=== PATIENT | male | born 1945 | race African-American/Black ===

== ENCOUNTER 2018-06-27 17:49 | Emergency (ER) | payer OTHER ==
--- OUTSIDE RECORDS SUMMARY | 2018-06-27 17:51 | XMS REPORT | Clinical Summary ---
:1945 Author Organization [facility] Address [address] [place] [address] Care Team Providers Name Role Phone Asked, No Pcp Primary Care Provider Unavailable Allergies Active Allergy Reactions Severity Noted Date Comments Iodine 02/27/2016 Lisinopril Swelling 10/06/2017 Tongue Other 05/12/2018 PT STATES HE IS ALLERGIC TO ONE BP MED CAUSING HIS TONGUE TO SWELL BUT DOES NOT REMEMBER THE NAME. PT WILL PROVIDE THE MED NAME IN AM. Medications Medication Sig Dispensed Refills Start Date End Date Status amLODIPine Take 10 mg by 0 Active (NORVASC) 10 MG mouth daily. tablet hydrALAZINE Take 50 mg by 0 Active (APRESOLINE) 25 MG mouth 3 tablet (three) times a day. predniSONE Take 5 mg by 0 Active (DELTASONE) 5 MG mouth daily. tablet aspirin (ECOTRIN) Take 81 mg by 0 Active 81 MG enteric mouth daily. coated tablet isosorbide Take 60 mg by 0 Active mononitrate (IMDUR) mouth daily. 60 MG 24 hr tablet atorvastatin Take 40 mg by 0 Active (LIPITOR) 40 MG mouth daily. tablet metoprolol tartrate Take 50 mg by 0 Active (LOPRESSOR) 50 MG mouth 2 (two) tablet times a day. clonIDINE Take 0.1 mg by 0 Active (CATAPRES) 0.1 MG mouth 2 (two) tablet times a day. furosemide (LASIX) Take 40 mg by 0 Active 40 mg tablet mouth daily. sevelamer carbonate Take 2.4 g by 0 Active (RENVELA) 2.4 gram mouth 3 powder in packet (three) times a day with meals. clopidogrel Take 75 mg by 0 Active (PLAVIX) 75 mg mouth daily. tablet traMADol (ULTRAM) Take 1 tablet 20 tablet 0 10/28/2017 11/02/2017 50 mg tablet (50 mg total) by mouth every 6 (six) hours as needed for severe pain for up to 5 days. lisinopril Take 10 mg by 0 05/13/2018 Discontinued (PRINIVIL,ZESTRIL) mouth daily. 10 mg tablet HYDROcodone-acetami Take 1 tablet 30 tablet 0 05/13/2018 05/20/2018 nophen (NORCO) by mouth every 5-325 mg per tablet 6 (six) hours as needed for moderate pain for up to 30 doses. Max Daily Amount: 4 tablets Active Problems Problem Noted Date Renal failure 01/30/2016 Dialysis patient Overview: MON,WED, FRI Wears glasses Full dentures TIA (transient ischemic attack) Overview: X5 Encounters Date Type Specialty Care Team Description 05/13/2018 Anesthesia Event General Surgery Regine Watters FNP 05/13/2018 Surgery General Surgery Tamera, RIGHT UPPER David Sales MD EXTREMITY AV GRAFT EXCISION 05/13/2018 Hospital Encounter General Surgery Tamera, End stage renal David Sales MD disease 05/13/2018 Abstract Transplant Gerber Bearden RN 05/12/2018 Hospital Encounter Radiology Praveen, Preoperative testing MD Bruce 05/12/2018 Pre-Admit Testing Pre-Admission Tamera Preoperative testing Appointment Testing David Sales MD (Primary Dx) 11/20/2017 Emergency Emergency Medicine Darling, Gangrene of toe Gerber Sales MD (Primary Dx) 10/28/2017 Emergency Emergency Medicine Tyrell Wolf PVD (peripheral vascular disease) (Primary Dx); Ulcer of great toe, left, with necrosis of muscle after 06/26/2017 Family History Medical History Relation Name Comments No Known Problems Brother No Known Problems Cousin No Known Problems Daughter No Known Problems Father No Known Problems Maternal Grandfather No Known Problems Maternal Grandmother No Known Problems Mother No Known Problems Paternal Grandfather No Known Problems Paternal Grandmother No Known Problems Sister No Known Problems Son Asthma Neg Hx Diabetes Neg Hx Heart failure Neg Hx Hyperlipidemia Neg Hx Hypertension Neg Hx Migraines Neg Hx Osteoarthritis Neg Hx Rashes / Skin problems Neg Hx Rheum arthritis Neg Hx Seizures Neg Hx Stroke Neg Hx Thyroid disease Neg Hx Relation Name Status Comments Brother Cousin Daughter Father Maternal Grandfather Maternal Grandmother Mother Paternal Grandfather Paternal Grandmother Sister Son Social History Tobacco Use Types Packs/Day Years Used Date Former Smoker Cigarettes Smokeless Tobacco: Never Used Comments: QUITTED ABOUT 30 years ago Alcohol Use Drinks/Week oz/Week Comments Yes Sex Assigned at Date Recorded Not on file Job Start Date Occupation Industry Not on file Not on file Not on file Travel History Travel Start Travel End No recent travel history available. Last Filed Vital Signs Vital Sign Reading Time Taken Blood Pressure 100/50 05/13/2018 1:30 PM CDT Pulse 73 05/13/2018 1:30 PM CDT Temperature 36.3 C (97.3 F) 05/13/2018 1:00 PM CDT Respiratory Rate 12 05/13/2018 1:30 PM CDT Oxygen Saturation 97% 05/13/2018 1:30 PM CDT Inhaled Oxygen Concentration - - Weight 70.3 kg (155 lb) 05/13/2018 6:53 AM CDT Height 182.9 cm (6') 05/13/2018 6:53 AM CDT Body Mass Index 21.02 05/13/2018 6:53 AM CDT Plan of Treatment Health Maintenance Due Date Last Done Comments COLON CANCER SCREENING 1993 SHINGRIX VACCINE (#1) 1993 ZOSTER VACCINE 2003 PNEUMOCOCCAL POLYSACCHARIDE VACCINE AGE 65 2008 AND OVER INFLUENZA VACCINE 03/17/2018 04/17/2017, 06/17/2016 PNEUMOCOCCAL-13 Completed 08/17/2015 Procedures Procedure Name Priority Date/Time Associated Comments Diagnosis AFB CULTURE Timed 05/13/2018 11:00 AM End stage renal Results for this CDT disease (HCC) procedure are in the results section. AFB STAIN Timed 05/13/2018 10:00 AM Results for this CDT procedure are in the results section. FUNGUS SMEAR Timed 05/13/2018 10:00 AM Results for this CDT procedure are in the results section. GRAM STAIN Timed 05/13/2018 10:00 AM Results for this CDT procedure are in the results section. AEROBIC CULTURE Timed 05/13/2018 10:00 AM End stage renal Results for this CDT disease procedure are in the results section. FUNGUS CULTURE Timed 05/13/2018 10:00 AM End stage renal Results for this CDT disease (HCC) procedure are in the results section. ANAEROBIC CULTURE Timed 05/13/2018 10:00 AM End stage renal Results for this CDT disease (HCC) procedure are in the results section. ANESTHESIA Routine 05/13/2018 9:23 AM INTUBATION CDT Procedure Note - Samantha Weaver CRNA - 05/13/2018 9:23 AM CDT Airway Date/Time: 05/13/2018 9:23 AM Performed by: SAMANTHA WEAVER Authorized by: PAOLO KAHN Location: OR Difficult Airway: No Anesthesiologist: PAOLO KAHN Resident/[employer] HAND/AA: SAMANTHA WEAVER Performed by: resident/[employer] HAND/AA Preoxygenated with 100% O2: Yes C-spine Precautions Maintained Throughout: Yes Mask Ventilation: Not attempted Final Airway Type: Supraglottic airway Final LMA: I-Gel LMA Size: 5 Number of Attempts at Approach: 1 POC PANEL 4 Routine 05/13/2018 7:54 Results for this AM CDT procedure are in the results section. ESTIMATED GFR STAT 05/13/2018 7:52 Results for this AM CDT procedure are in the results section. BASIC METABOLIC PANEL STAT 05/13/2018 7:52 Results for this AM CDT procedure are in the results section. XR CHEST 2 VW Routine 05/12/2018 4:09 Preoperative testing Results for this PM CDT procedure are in the results section. TYPE AND SCREEN Routine 05/12/2018 3:00 Preoperative testing Results for this PM CDT procedure are in the results section. PARTIAL THROMBOPLASTIN Routine 05/12/2018 3:00 Preoperative testing Results for this TIME (PTT) PM CDT procedure are in the results section. PROTHROMBIN TIME WITH Routine 05/12/2018 3:00 Preoperative testing Results for this INR PM CDT procedure are in the results section. HC COMPLETE BLD COUNT Routine 05/12/2018 3:00 Preoperative testing Results for this W/AUTO DIFF PM CDT procedure are in the results section. ECG PRE/POST OP Routine 05/12/2018 2:01 Preoperative testing Results for this PM CDT procedure are in the results section. XR TOE 2+ VW LEFT STAT 11/20/2017 8:10 Results for this PM CDT procedure are in the results section. BLOOD CULTURE, AEROBIC Routine 11/20/2017 8:00 Results for this & ANAEROBIC PM CDT procedure are in the results section. ZZESTIMATED GFR STAT 11/20/2017 7:48 Results for this PM CDT procedure are in the results section. BASIC METABOLIC PANEL STAT 11/20/2017 7:48 Results for this PM CDT procedure are in the results section. HC COMPLETE BLD COUNT STAT 11/20/2017 7:48 Results for this W/AUTO DIFF PM CDT procedure are in the results section. BLOOD CULTURE, AEROBIC Routine 11/20/2017 7:48 Results for this & ANAEROBIC PM CDT procedure are in the results section. XR FOOT 3+ VW LEFT STAT 10/28/2017 1:28 Results for this PM CDT procedure are in the results section. ZZESTIMATED GFR STAT 10/28/2017 12:45 Results for this PM CDT procedure are in the results section. URIC ACID LEVEL STAT 10/28/2017 12:45 Results for this PM CDT procedure are in the results section. COMPREHENSIVE STAT 10/28/2017 12:45 Results for this METABOLIC PANEL PM CDT procedure are in the results section. PARTIAL THROMBOPLASTIN STAT 10/28/2017 12:45 Results for this TIME (PTT) PM CDT procedure are in the results section. PROTHROMBIN TIME WITH STAT 10/28/2017 12:45 Results for this INR PM CDT procedure are in the results section. HC COMPLETE BLD COUNT STAT 10/28/2017 12:45 Results for this W/AUTO DIFF PM CDT procedure are in the results section. after 06/26/2017 Results AFB culture (05/13/2018 11:00 AM CDT) AFB culture isolate No growth after 6 weeks of incubation. [facility] DEPARTMENT OF PATHOLOGY Comment: AND [employer] MEDICINE Specimen Information Specimen Source: Tissue Specimen Site: Arm, right AV graft right upper extremity Specimen Tissue - Arm, right Performing Organization Address City/[facility] Phone Number [facility] DEPARTMENT OF PATHOLOGY AND [address] [place] [phone] GENOMIC MEDICINE Fungus smear (05/13/2018 10:00 AM CDT) Fungus smear No fungi observed. [facility] DEPARTMENT OF PATHOLOGY Comment: AND [employer] MEDICINE Specimen Information Specimen Source: Tissue Specimen Site: Arm, right AV graft right upper extremity Specimen Tissue Performing Organization Address City/[facility] Phone Number [facility] DEPARTMENT OF PATHOLOGY AND [address] [place] [address] [employer] MEDICINE Aerobic culture (05/13/2018 10:00 AM CDT) Aerobic culture isolate No growth after 3 days. [facility] DEPARTMENT OF Comment: PATHOLOGY AND GENOMIC Specimen Information MEDICINE Specimen Source: Tissue Specimen Site: Arm, right AV graft right upper extremity Specimen Tissue - Arm, right Performing Organization Address City/[facility] Phone Number [facility] DEPARTMENT OF PATHOLOGY AND [address] [place] [address] GENOMIC MEDICINE Gram stain (05/13/2018 10:00 AM CDT) Gram stain isolate Occasional WBC's [facility] DEPARTMENT OF PATHOLOGY No organisms seen AND GENOMIC MEDICINE Comment: Specimen Information Specimen Source: Tissue Specimen Site: Arm, right AV graft right upper extremity Specimen Tissue Performing Organization Address [facility] Phone Number [facility] DEPARTMENT OF PATHOLOGY AND [address] [place] [address] GENOMIC MEDICINE AFB stain (05/13/2018 10:00 AM CDT) AFB stain No acid fast bacilli (AFB) seen. [facility] DEPARTMENT OF PATHOLOGY AND Comment: GENOMIC MEDICINE Specimen Information Specimen Source: Tissue Specimen Site: Arm, right AV graft right upper extremity Specimen Tissue Performing Organization Address [facility] Phone Number [facility] DEPARTMENT OF PATHOLOGY AND [address] [place] [address] GENOMIC MEDICINE Fungus culture (05/13/2018 10:00 AM CDT) Fungus culture isolate No growth after 4 weeks of incubation. [facility] DEPARTMENT OF Comment: PATHOLOGY AND GENOMIC Specimen Information MEDICINE Specimen Source: Tissue Specimen Site: Arm, right AV graft right upper extremity Specimen Tissue - Arm, right Performing Organization Address [facility] Phone Number [facility] DEPARTMENT OF PATHOLOGY AND [address] [place] [address] GENOMIC MEDICINE Anaerobic culture (05/13/2018 10:00 AM CDT) Anaerobic culture No anaerobic organisms isolated. [facility] DEPARTMENT OF isolate Comment: PATHOLOGY AND GENOMIC Specimen Information MEDICINE Specimen Source: Tissue Specimen Site: Arm, right AV graft right upper extremity Specimen Tissue - Arm, right Performing Organization Address City/[facility] Phone Number [facility] DEPARTMENT OF PATHOLOGY AND [address] [place] [address] GENOMIC MEDICINE POC panel 4 (05/13/2018 7:54 AM CDT) POC sodium 139 135 - 148 mmol/L [facility] DEPARTMENT OF PATHOLOGY AND GENOMIC MEDICINE POC potassium 5.5 (H) 3.5 - 5.0 mmol/L [facility] DEPARTMENT OF PATHOLOGY AND GENOMIC MEDICINE POC hematocrit 31 (L) 41 - 51 % [facility] DEPARTMENT OF PATHOLOGY AND GENOMIC MEDICINE POC glucose 79 65 - 99 mg/dL [facility] DEPARTMENT OF PATHOLOGY AND GENOMIC MEDICINE POC hemoglobin 10.5 (L) 14.0 - 18.0 g/dL [facility] DEPARTMENT OF Comment: PATHOLOGY AND GENOMIC Meter ID: [id number] MEDICINE Network Associate: Eugene Sonia Specimen Blood Performing Organization Address City/[facility]/Zipcode Phone Number [facility] DEPARTMENT OF PATHOLOGY [address] [place] [address] AND [employer] [facility] Estimated GFR (05/13/2018 7:52 AM CDT) Estimated GFR 8 (A) mL/min/1.73 m2 [facility] DEPARTMENT OF Comment: PATHOLOGY AND GENOMIC CatergoryUnitsInterpretation MEDICINE G1 >=90 Normal or high G2 60-89Mildly decreased [id number] to moderately decreased [id number] to severely decreased G4 15-29Severely decreased G5 <15Kidney failure The eGFR was calculated using the Chronic Kidney Disease Epidemiology Collaboration (CKD-EPI) equation. Interpretation is based on recommendations of the National Kidney Foundation-Kidney Disease Outcomes Quality Initiative (NKF-KDOQI) published in 2014. Specimen Plasma specimen Performing Organization Address City/[facility] Phone Number [facility] OF PATHOLOGY [address] [place] [address] AND [facility] Basic metabolic panel (05/13/2018 7:52 AM CDT)Only the most recent of2 resultswithin the time period is included. Sodium 138 135 - 148 mEq/L [facility] DEPARTMENT OF PATHOLOGY AND GENOMIC MEDICINE Potassium 5.7 (H) 3.5 - 5.0 mEq/L [facility] DEPARTMENT OF PATHOLOGY AND GENOMIC MEDICINE Chloride 97 (L) 98 - 112 mEq/L [facility] DEPARTMENT OF PATHOLOGY AND GENOMIC MEDICINE CO2 26 24 - 31 mEq/L [facility] DEPARTMENT OF PATHOLOGY AND GENOMIC MEDICINE Anion gap 15@ANIO 7 - 15 mEq/L [facility] DEPARTMENT OF PATHOLOGY AND GENOMIC MEDICINE BUN 46 (H) 8 - 23 mg/dL [facility] DEPARTMENT OF PATHOLOGY AND GENOMIC MEDICINE Creatinine 7.31 (H) 0.70 - 1.20 mg/dL [facility] DEPARTMENT OF PATHOLOGY AND GENOMIC MEDICINE Glucose 78 65 - 99 mg/dL [facility] DEPARTMENT OF PATHOLOGY AND GENOMIC MEDICINE Calcium 8.4 (L) 8.8 - 10.2 mg/dL [facility] DEPARTMENT OF PATHOLOGY AND GENOMIC MEDICINE Specimen Plasma specimen Performing Organization Address City/State/Zipcode Phone Number [facility] DEPARTMENT OF PATHOLOGY [address] [place] [address] AND [employer] MEDICINE XR Chest 2 Vw (05/12/2018 4:09 PM CDT) Narrative Performed At EXAMINATION:XR CHEST 2 VW [facility] CLINICAL HISTORY:Z01.818 Encounter for other preprocedural examination, PREOP COMPARISON:Chest x-ray 01/31/2016 IMPRESSION: Frontal and lateral views reveal interval placement of a HeRO graft. Otherwise stable cardiomediastinal silhouette. Lungs are clear. Pleural margins are sharp. Left hemidiaphragm remains elevated. The remainder of the examination is unchanged. [facility]-[id number] Procedure Note Interface, Radiology Results Incoming - 05/12/2018 4:15 PM CDT EXAMINATION: XR CHEST 2 VW CLINICAL HISTORY: Z01.818 Encounter for other preprocedural examination, PREOP COMPARISON: Chest x-ray 01/31/2016 IMPRESSION: Frontal and lateral views reveal interval placement of a HeRO graft. Otherwise stable cardiomediastinal silhouette. Lungs are clear. Pleural margins are sharp. Left hemidiaphragm remains elevated. The remainder of the examination is unchanged. [facility]-[id number] Performing Organization Address [facility] Phone Number [facility] [address] [place] [address] Partial thromboplastin time, activated (05/12/2018 3:00 PM CDT)Only the most recent of2 resultswithin the time period is included. PTT 36.0 23.0 - 36.0 sec [facility] DEPARTMENT OF Comment: PATHOLOGY AND GENOMIC PTT therapeutic range for unfractionated heparin is MEDICINE 61.0-112.0 seconds which corresponds to Anti-Xa 0.3-0.7 U/ml. Specimen Blood Performing Organization Address City/State/Zipcode Phone Number [facility] DEPARTMENT OF PATHOLOGY [address] [place] [address] AND [employer] MEDICINE Prothrombin time with INR (05/12/2018 3:00 PM CDT)Only the most recent of2 resultswithin the time period is included. Prothrombin time 14.3 12.0 - 15.0 sec [facility] DEPARTMENT OF PATHOLOGY AND GENOMIC MEDICINE INR 1.1 [facility] DEPARTMENT OF Comment: PATHOLOGY AND GENOMIC The International Normalized Ratio (INR) is a therapeutic MEDICINE monitoring tool for patients who are stable on oral anticoagulant therapy. An INR of 2.0-3.0 is suggested for deep vein thrombosis/pulmonary embolism. Specimen Blood Performing Organization Address City/State/Zipcode Phone Number [facility] DEPARTMENT OF PATHOLOGY [address] [place] [address] AND GENOMIC MEDICINE CBC with platelet and differential (05/12/2018 3:00 PM CDT)Only the most recent of3 resultswithin the time period is included. WBC 4.5 4.5 - 11.0 k/uL [facility] DEPARTMENT OF PATHOLOGY AND GENOMIC MEDICINE RBC 4.17 (L) 4.40 - 6.00 m/uL [facility] DEPARTMENT OF PATHOLOGY AND GENOMIC MEDICINE HGB 10.5 (L) 14.0 - 18.0 g/dL [facility] DEPARTMENT OF PATHOLOGY AND GENOMIC MEDICINE HCT 34.5 (L) 41.0 - 51.0 % [facility] DEPARTMENT OF PATHOLOGY AND GENOMIC MEDICINE MCV 82.7 82.0 - 100.0 fL [facility] DEPARTMENT OF PATHOLOGY AND GENOMIC MEDICINE MCH 25.2 (L) 27.0 - 34.0 pg [facility] DEPARTMENT OF PATHOLOGY AND GENOMIC MEDICINE MCHC 30.4 (L) 31.0 - 37.0 g/dL [facility] DEPARTMENT OF PATHOLOGY AND GENOMIC MEDICINE RDW - SD 62.5 (H) 37.0 - 55.0 fL [facility] DEPARTMENT OF PATHOLOGY AND GENOMIC MEDICINE MPV 9.0 6.9 - 11.0 fL [facility] DEPARTMENT OF PATHOLOGY AND GENOMIC MEDICINE Platelet count 276 150 - 400 K/uL [facility] DEPARTMENT OF PATHOLOGY AND GENOMIC MEDICINE Nucleated RBC 0.00 /100 WBC [facility] DEPARTMENT OF PATHOLOGY AND GENOMIC MEDICINE Neutrophils 60.2 39.0 - 69.0 % [facility] DEPARTMENT OF PATHOLOGY AND GENOMIC MEDICINE Lymphocytes 18.0 (L) 25.0 - 45.0 % [facility] DEPARTMENT OF PATHOLOGY AND GENOMIC MEDICINE Monocytes 17.7 (H) 0.0 - 10.0 % [facility] DEPARTMENT OF PATHOLOGY AND GENOMIC MEDICINE Eosinophils 3.5 0.0 - 5.0 % [facility] DEPARTMENT OF PATHOLOGY AND GENOMIC MEDICINE Basophils 0.4 0.0 - 1.0 % [facility] DEPARTMENT OF PATHOLOGY AND GENOMIC MEDICINE Immature granulocytes 0.2 0.0 - 1.0 % [facility] DEPARTMENT OF PATHOLOGY AND GENOMIC MEDICINE Specimen Blood Performing Organization Address City/[facility] Phone Number [facility] DEPARTMENT OF PATHOLOGY [address] [place] [address] AND GENOMIC MEDICINE Type and screen (05/12/2018 3:00 PM CDT) ABO grouping B [facility] DEPARTMENT OF PATHOLOGY AND GENOMIC MEDICINE Rh type POS [facility] DEPARTMENT OF PATHOLOGY AND GENOMIC MEDICINE Antibody screen (gel) NEG [facility] DEPARTMENT OF PATHOLOGY AND GENOMIC MEDICINE Specimen Blood Performing Organization Address [facility] Phone Number [facility] DEPARTMENT OF PATHOLOGY [address] [place] [address] AND GENOMIC MEDICINE ECG Pre/Post Op (05/12/2018 2:01 PM CDT) Ventricular rate 70 [facility] Atrial rate 70 [facility] CA interval 160 [facility] QRSD interval 88 [facility] QT interval 430 [facility] QTC interval 464 [facility] P axis 1 66 [facility] QRS axis 1 29 [facility] T wave axis 31 [facility] EKG impression Sinus rhythm with premature atrial complexes-Septal infarct , age undetermined-Abnormal ECG-In automated comparison with ECG of 21-JUL-2016 14 :42,-premature ventricular complexes are no longer present-premature atrial complexes are now [facility] MUSE present- : 46 AM Performing Organization Address [facility] Phone Number [facility] MUSE [address] [place] [address] XR Toe 2+ Vw Left (11/20/2017 8:10 PM CDT) Narrative Performed At EXAMINATION:XR TOE 2VW LEFT [facility] CLINICAL HISTORY:gangrene COMPARISON:12/28/2017 IMPRESSION: 1.Osteopenia is noted. No plain film findings of osteomyelitis bony destruction or periostitis. Soft tissue changes in the distal aspect of the great toe can be seen with gangrene.No acute fractures. Vascular calcifications. Mild arthritic changes in the foot. Procedure Note Interface, Radiology Results Incoming - 11/20/2017 8:45 PM CDT EXAMINATION: XR TOE 2 VW LEFT CLINICAL HISTORY: gangrene COMPARISON: 12/28/2017 IMPRESSION: 1. Osteopenia is noted. No plain film findings of osteomyelitis bony destruction or periostitis. Soft tissue changes in the distal aspect of the great toe can be seen with gangrene. No acute fractures. Vascular calcifications. Mild arthritic changes in the foot. Performing Organization Address [facility]/Zipcode Phone Number [facility] [address] [place] [address] Blood culture, aerobic & anaerobic (11/20/2017 8:00 PM CDT)Only the most recent of2 resultswithin the time period is included. Blood culture isolate No growth after 5 days of incubation. [facility] DEPARTMENT OF Comment: PATHOLOGY AND GENOMIC Specimen Information MEDICINE Specimen Source: Blood Specimen Site: Forearm, right Specimen Blood - Forearm, right Performing Organization Address [facility] Phone Number [facility] DEPARTMENT OF PATHOLOGY AND [address] [place] [address] [employer] [facility] Estimated GFR (11/20/2017 7:48 PM CDT)Only the most recent of2 resultswithin the time period is included. GFR Non Af Amer 12 (A) mL/min/1.73 m2 [facility] DEPARTMENT OF PATHOLOGY AND GENOMIC MEDICINE GFR Af Amer 15 (A) mL/min/1.73 m2 [facility] DEPARTMENT OF Comment: PATHOLOGY AND GENOMIC Chronic kidney disease: <60 mL/min/1.73m2 MEDICINE Kidney failure: <15 mL/min/1.73m2 The estimated GFR is calculated from the IDMS-traceable Modification of Diet in Renal Disease Equation. The accuracy of the calculation is poor when the creatinine is normal. Calculated values >90 mL/min/1.73m2 are not reported. This equation has not been validated in children (<18 years), women, the elderly (>70 years), or ethnic groups other than Caucasians and Americans. Specimen Plasma specimen Performing Organization Address [facility]/Zipcode Phone Number [facility] DEPARTMENT OF PATHOLOGY AND [address] [place] [address] [employer] XR Foot 3+ Vw Left (10/28/2017 1:28 PM CDT) Narrative Performed At EXAMINATION:XR FOOT 3VW LEFT [facility] CLINICAL HISTORY:great toe infection COMPARISON:None. IMPRESSION: 1.There is no evidence of acute left foot fracture or dislocation. There are no radiopaque foreign bodies. 2.There are no focal bony erosions or periostitis. Extensive vascular calcifications are present. There is no radiographic evidence of osteomyelitis. [id number] Procedure Note Hm Interface, Radiology Results Incoming - 10/28/2017 1:36 PM CDT EXAMINATION: XR FOOT 3 VW LEFT CLINICAL HISTORY: great toe infection COMPARISON: None. IMPRESSION: 1. There is no evidence of acute left foot fracture or dislocation. There are no radiopaque foreign bodies. 2. There are no focal bony erosions or periostitis. Extensive vascular calcifications are present. There is no radiographic evidence of osteomyelitis. [id number] Performing Organization Address City/State/Zipcode Phone Number [facility] [id number] [facility] [place] [address] Uric acid level (10/28/2017 12:45 PM CDT) Uric acid 2.0 (L) 3.5 - 8.5 mg/dL [facility] Specimen Plasma specimen Narrative Performed At [facility] was on ice [facility] Performing Organization Address City/State/Zipcode Phone Number [facility] [id number] [place] [address] [employer] [facility] Comprehensive metabolic panel (10/28/2017 12:45 PM CDT) Sodium 138 135 - 148 mEq/L [facility] Potassium 4.4 3.5 - 5.0 mEq/L [facility] Chloride 97 (L) 99 - 109 mEq/L [facility] CO2 26 24 - 31 mEq/L [facility] Anion gap 15 7 - 15 mEq/L [facility] Comment: PATHOLOGY AND GENOMIC Starting from November , anion gap calculation MEDICINE no longer incorporates potassium. Please note the change. BUN 21 8 - 24 mg/dL [facility] Creatinine 4.2 (H) 0.5 - 1.5 mg/dL [facility] Glucose 89 65 - 99 mg/dL [facility] Calcium 9.1 8.6 - 10.6 mg/dL [facility] Protein 8.1 6.3 - 8.2 g/dL [facility] Albumin 3.1 (L) 3.5 - 5.0 g/dL [facility] A/G ratio 0.6 (L) 0.7 - 3.8 [facility] Alkaline phosphatase 37 30 - 115 U/L [facility] AST 33 15 - 46 U/L [facility]IC[facility] ALT 5 (L) 10 - 55 U/L [facility] Total bilirubin 0.4 0.2 - 1.2 mg/dL [facility] Specimen Plasma specimen Narrative Performed At [facility] on [facility] Performing Organization Address City/State/Zipcode Phone Number [facility] [id number] [place] [address] GENOMIC MEDICINE after 06/26/2017 Insurance Payer Benefit Plan / Group Subscriber ID Type Phone Address [employer] MEDICARE [facility] xxxxxxxxx O Advance Directives Patient has advance care planning documents on file. For more information, please contact:Doug Rushing[address] [place] [address]
--- NOTE | 2018-06-27 19:20 | RAD REPORT ---
EXAM DESCRIPTION: CT - Abdomen Pelvis Wo Contrast - 06/27/2018 7:01 pm CLINICAL HISTORY: Abdominal pain, right groin pain COMPARISON: CT February 2014 TECHNIQUE: Axial [address] imaging of the abdomen and pelvis was performed without IV contrast. No IV contrast was given because of allergy, abnormal renal function, patient refusal or physician re quest. No oral contrast administered. All CT scans are performed using dose optimization technique as appropriate and may include automated exposure control or mA/KV adjustment according to patient size. FINDINGS: No suspicious findings in the lung bases. The liver, spleen and pancreas show no suspicious findings on non-contrast imaging. Gallbladder is co ntracted limiting assessment. No biliary tree dilatation. [place] kidneys are extremely atrophic with little renal tissue remaining. No surgical clips to indica te nephrectomy. 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 Dialysis history was provided. Transplant kidney may no longer be functioning. Urinary bladder is contracted. No significant adrenal finding. No dilated bowel loops or bowel wall thickening. No free air, free fluid or inflammatory stranding. N o hernia, mass or bulky lymphadenopathy. Dense calcifications of the arterial tree are present. Chron ic dialysis changes are evident in the skeleton. Severe degenerative changes are present. A lumbosacral transition body is present labeled L5 for the purposes of this examination. Severe endplate degenerative change present at L1-2 and L2-3. Prominent degenerative changes are present at L3-4 and L4-5. No clearly pathologic process seen. No definitive evidence for discitis or osteomyelitis. No mass, hematoma or other suspicious finding in the right groin. IMPRESSION: No bowel obstruction, free air or surgically emergent finding. Severely atrophic [place] kidneys with the right pelvic transplant kidney edematous with loss of renal hilar fat. This may be a non functioning transplant. If functioning, the transplant kidney may be ed ematous from infectious/inflammatory etiologies. Severe degenerative change in the lumbar spine as detailed. The discitis or osteomyelitis are not exc luded. No specific finding to significantly elevate this possibility. No right groin focal abnormality. Full assessment is limited is the absence of IV contrast.
--- NOTE | 2018-06-27 19:42 | ER ---
Nurse's Notes [facility] Name: Jasmyne Paz Age: 73 yrs Sex: Male : 1945 Arrival Date: 06/27/2018 Time: 17:51 Bed 6 Private MD: None, None Diagnosis: Unspecified abdominal pain Presentation: 06/27 17:55 Presenting complaint: Patient states: Pain to right groin for 6 months. Patient was aj seen by PCP last week for same complaint, had U/S. Transition of care: patient was not received from another setting of care. Onset of symptoms was December 2017. Risk Assessment: Do you want to hurt yourself or someone else? Patient reports no desire to harm self or others. Initial Sepsis Screen: Does the patient meet any 2 criteria? No. Patient's initial sepsis screen is negative. Does the patient have a suspected source of infection? No. Patient's initial sepsis screen is negative. Care prior to arrival: None. 17:55 Method Of Arrival: Wheelchair aj 17:55 Acuity: JONAH 4 aj Triage Assessment: 17:58 General: Appears in no apparent distress. comfortable, Behavior is calm, cooperative, aj appropriate for age. Pain: Complains of pain in right femoral area. Neuro: Level of Consciousness is awake, alert, obeys commands, Oriented to person, place, time, situation, Appropriate for age. Respiratory: Airway is patent Respiratory effort is even, unlabored, Respiratory pattern is regular, symmetrical. Derm: Skin is intact, is healthy with good turgor, Skin is pink, warm \T\ dry. normal. Musculoskeletal: Reports pain in right femoral area. Historical: - Allergies: 17:58 Iodinated Contrast Media - IV Dye; aj 17:58 Lisinopril; aj - Home Meds: 17:58 Renvela 800 mg Oral tab 2 tabs 3 times per day [Active]; isosorbide mononitrate 30 mg aj Oral Tb24 1 tab once daily for Chronic Heart Failure [Active]; hydralazine 50 mg Oral tab 1 tab 2 times per day [Active]; clonidine HCl 0.1 mg Oral tab 1 tab 2 times per day [Active]; clopidogrel 75 mg oral tab 1 tab once daily [Active]; aspirin 81 mg Oral TbEC 1 tab once daily [Active]; atorvastatin 40 mg oral tab 1 tab once daily [Active]; - PMHx: 17:58 breast cancer; CHF; Dialysis; ESRD; High Cholesterol; Hypertension; aj - PSHx: 17:58 left upper arm dialysis graft; bilateral mastectomy; Heart stents; aj - Immunization history:: Adult Immunizations up to date. - Social history:: Smoking status: Patient/guardian denies using tobacco. - Ebola Screening: : Patient negative for fever greater than or equal to 101.5 degrees Fahrenheit, and additional compatible Ebola Virus Disease symptoms Patient denies exposure to infectious person Patient denies travel to an Ebola-affected area in the 21 days before illness onset No symptoms or risks identified at this time. Screenin:03 Abuse screen: Denies threats or abuse. Denies injuries from another. Nutritional hj screening: No deficits noted. Tuberculosis screening: No symptoms or risk factors identified. Fall Risk None identified. Assessment: 18:04 General: Appears in no apparent distress. uncomfortable, Behavior is calm, cooperative, hj appropriate for age. Pain: Complains of pain in right femoral area. Neuro: Level of Consciousness is awake, alert, obeys commands, Oriented to person, place, time, situation, Appropriate for age. Cardiovascular: Capillary refill < 3 seconds Patient's skin is warm and dry. Respiratory: Airway is patent Respiratory effort is even, unlabored, Respiratory pattern is regular, symmetrical. GI: No signs and/or symptoms were reported involving the gastrointestinal system. : No signs and/or symptoms were reported regarding the genitourinary system. EENT: No signs and/or symptoms were reported regarding the EENT system. Derm: No signs and/or symptoms reported regarding the dermatologic system. Musculoskeletal: Reports pain in right femoral area. 18:51 Reassessment: pt states, he has an old dialysis graft on L arm that he is not allowed hj to have blood draw on and a new dialysis graft on R arm; provider notified, states, hes going to insert EJ and draw blood;. 20:01 Reassessment: Patient appears in no apparent distress at this time. Patient is alert, aa1 oriented x 3, equal unlabored respirations, skin warm/dry/pink. Discussed d/c \T\ f/u instructions with pt; denies questions or concerns at this time Patient states feeling better. Vital Signs: 17:58 BP 163 / 80; Pulse 77; Resp 20; Temp 97.7; Pulse Ox 99% on R/A; Weight 70.31 kg; Height aj 6 ft. 0 in. (182.88 cm); 20:01 BP 159 / 76; Pulse 74; Resp 18; Pulse Ox 99% on R/A; aa1 17:58 Body Mass Index 21.02 (70.31 kg, 182.88 cm) ED Course: 17:51 Patient arrived in ED. mr 17:52 None, None is Private Physician. mr 17:56 Triage completed. aj 17:58 Arm band placed on left wrist. Patient placed in an exam room. aj 18:01 Nic Lopez, GEE is Primary Nurse. hj 18:03 Patient has correct armband on for positive identification. Placed in gown. Bed in low hj position. Call light in reach. Side rails up X 1. Adult w/ patient. 18:17 Tyrel Munoz NP is PHCP. pm1 18:17 Florentin Sin MD is Attending Physician. pm1 19:00 CT completed. Patient moved to CT via stretcher. Patient moved back from CT. cw1 19:01 CT Abd/Pelvis - Without Cont In Process Unspecified. EDMS 20:01 No provider procedures requiring assistance completed. Patient did not have IV access aa1 during this emergency room visit. Administered Medications: 20:00 Drug: [place] 5 mg-325 mg 1 tabs Route: PO; aa1 20:00 Follow up: Response: Medication administered at discharge. aa1 Outcome: 19:41 Discharge ordered by MD. pm1 20:01 Discharged to home via wheelchair, with family. aa1 20:01 Condition: good 20:01 Discharge instructions given to patient, family, Instructed on discharge instructions, follow up and referral plans. medication usage, Demonstrated understanding of instructions, follow-up care, medications, Prescriptions given X 1. 20:03 Patient left the ED. aa1 Signatures: Dispatcher [employer] EDMI Irina Tate RN RN aa1 Kathy Whitley RN RN aj Rivera, Mary mr Bravo Dariana cw1 Nic Lopez RN RN hj Marinas, Patrick, NP BRIM STRETCHING MACHINE OPERATOR pm1
--- NOTE | 2018-06-27 19:42 | EDPHYS ---
Physician Documentation [facility] Name: Jasmyne Paz Age: 73 yrs Sex: Male : 1945 Arrival Date: 06/27/2018 Time: 17:51 Bed 6 Private MD: None, None ED Physician Florentin Sin HPI: 06/27 19:00 This 73 yrs old Black Male presents to ER via Wheelchair with complaints of Right Groin pm1 Pain. 19:00 The patient presents with abdominal pain right lower quadrant. Onset: The pm1 symptoms/episode began/occurred 6 month(s) ago. The symptoms do not radiate. Associated signs and symptoms: Pertinent negatives: nausea, vomiting, and diarrhea, chest pain, fever, shortness of breath, testicular pain. The symptoms are described as crampy. Modifying factors: The symptoms are alleviated by bowel movements. the symptoms are aggravated by bending back. Severity of pain: in the emergency department the pain is unchanged. The patient has been recently seen by a physician: the patient's primary care provider, 1 week(s) ago, seen for the same pain and had an ultrasound of right RLQ performed. Patient on hemodialysis. 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 Has had pain to the area for the past 6 months that has been evaluated by his PCP. U/S performed 1 week ago and was told that it was negative. Patient no longer creates anymore urine. Historical: - Allergies: 17:58 Iodinated Contrast Media - IV Dye; aj 17:58 Lisinopril; aj - Home Meds: 17:58 Renvela 800 mg Oral tab 2 tabs 3 times per day [Active]; isosorbide mononitrate 30 mg aj Oral Tb24 1 tab once daily for Chronic Heart Failure [Active]; hydralazine 50 mg Oral tab 1 tab 2 times per day [Active]; clonidine HCl 0.1 mg Oral tab 1 tab 2 times per day [Active]; clopidogrel 75 mg oral tab 1 tab once daily [Active]; aspirin 81 mg Oral TbEC 1 tab once daily [Active]; atorvastatin 40 mg oral tab 1 tab once daily [Active]; - PMHx: 17:58 breast cancer; CHF; Dialysis; ESRD; High Cholesterol; Hypertension; aj - PSHx: 17:58 left upper arm dialysis graft; bilateral mastectomy; Heart stents; aj - Immunization history:: Adult Immunizations up to date. - Social history:: Smoking status: Patient/guardian denies using tobacco. - Ebola Screening: : Patient negative for fever greater than or equal to 101.5 degrees Fahrenheit, and additional compatible Ebola Virus Disease symptoms Patient denies exposure to infectious person Patient denies travel to an Ebola-affected area in the 21 days before illness onset No symptoms or risks identified at this time. ROS: 19:00 Constitutional: Negative for fever, chills, and weight loss, Eyes: Negative for injury, pm1 pain, redness, and discharge, ENT: Negative for injury, pain, and discharge, Neck: Negative for injury, pain, and swelling, Cardiovascular: Negative for chest pain, palpitations, and edema, Respiratory: Negative for shortness of breath, cough, wheezing, and pleuritic chest pain. 19:00 Back: Negative for injury and pain, : Negative for injury, bleeding, discharge, and swelling, MS/Extremity: Negative for injury and deformity, Skin: Negative for injury, rash, and discoloration, Neuro: Negative for headache, weakness, numbness, tingling, and seizure. 19:00 Abdomen/GI: Positive for abdominal pain, of the right lower quadrant, Negative for nausea, vomiting, and diarrhea. Exam: 19:00 Constitutional: This is a well developed, well nourished patient who is awake, alert, pm1 and in no acute distress. Head/Face: Normocephalic, atraumatic. Eyes: Pupils equal round and reactive to light, extra-ocular motions intact. Lids and lashes normal. Conjunctiva and sclera are non-icteric and not injected. Cornea within normal limits. Periorbital areas with no swelling, redness, or edema. ENT: Nares patent. No nasal discharge, no septal abnormalities noted. Tympanic membranes are normal and external auditory canals are clear. Oropharynx with no redness, swelling, or masses, exudates, or evidence of obstruction, uvula midline. Mucous membranes moist. Neck: Trachea midline, no thyromegaly or masses palpated, and no cervical lymphadenopathy. Supple, full range of motion without nuchal rigidity, or vertebral point tenderness. No Meningismus. Chest/axilla: Normal chest wall appearance and motion. Nontender with no deformity. No lesions are appreciated. Cardiovascular: Regular rate and rhythm with a normal S1 and S2. No gallops, murmurs, or rubs. Normal PMI, no JVD. No pulse deficits. Respiratory: Lungs have equal breath sounds bilaterally, clear to auscultation and percussion. No rales, rhonchi or wheezes noted. No increased work of breathing, no retractions or nasal flaring. 19:00 Back: No spinal tenderness. No costovertebral tenderness. Full range of motion. Skin: Warm, dry with normal turgor. Normal color with no rashes, no lesions, and no evidence of cellulitis. MS/ Extremity: Pulses equal, no cyanosis. Neurovascular intact. Full, normal range of motion. 19:00 Abdomen/GI: Inspection: abdomen appears normal, Bowel sounds: normal, Palpation: soft, in all quadrants, mild abdominal tenderness, in the right lower quadrant, mass, is not appreciated, rebound tenderness, is not appreciated. 19:00 Neuro: Orientation: is normal, Motor: is normal, moves all fours, strength is normal, strength is 5/5 in all extremities, Sensation: is normal, no obvious gross deficits. Vital Signs: 17:58 BP 163 / 80; Pulse 77; Resp 20; Temp 97.7; Pulse Ox 99% on R/A; Weight 70.31 kg; Height aj 6 ft. 0 in. (182.88 cm); 20:01 BP 159 / 76; Pulse 74; Resp 18; Pulse Ox 99% on R/A; aa1 17:58 Body Mass Index 21.02 (70.31 kg, 182.88 cm) MDM: 18:18 Patient medically screened. pm1 19:37 Data reviewed: vital signs. Data interpreted: Pulse oximetry: on room air is 99 %. pm1 Interpretation: normal. Counseling: I had a detailed discussion with the patient and/or guardian regarding: the historical points, exam findings, and any diagnostic results supporting the discharge/admit diagnosis, radiology results, the need for outpatient follow up, to return to the emergency department if symptoms worsen or persist or if there are any questions or concerns that arise at home. 06/27 18:35 Order name: CT Abd/Pelvis - Without Cont; Complete Time: 19:21 pm1 Administered Medications: 20:00 Drug: [place] 5 mg-325 mg 1 tabs Route: PO; aa1 20:00 Follow up: Response: Medication administered at discharge. aa1 Disposition: 06/27/18 19:41 Discharged to Home. Impression: Unspecified abdominal pain. - Condition is Stable. - Discharge Instructions: Abdominal Pain, Adult. - Prescriptions for Tylenol- Codeine #3 300-30 mg Oral Tablet - take 2 tablets by ORAL route every 6 hours As needed; 20 tablet. - Medication Reconciliation Form, Thank You Letter, Prescription Opioid Use form. - Follow up: Emergency Department; When: As needed; Reason: Worsening of condition. Follow up: Private Physician; When: 2 - 3 days; Reason: Recheck today's complaints, Continuance of care, Re-evaluation by your physician. - Problem is new. - Symptoms have improved. Signatures: Dispatcher [employer] EDMS Irina Tate RN RN aa1 Kathy Whitley RN RN Tyrel Trevino, PERINATAL TECHNICIAN PERINATAL TECHNICIAN pm1 Corrections: (The following items were deleted from the chart) 19:50 18:35 IV Saline Lock ordered. pm1 aa1 19:50 18:35 Labs collected and sent ordered. pm1 aa1 20:03 19:41 06/27/2018 19:41 Discharged to Home. Impression: Unspecified abdominal pain. aa1 Condition is Stable. Forms are Medication Reconciliation Form, Thank You Letter, Antibiotic Education, Prescription Opioid Use. Follow up: Emergency Department; When: As needed; Reason: Worsening of condition. Follow up: Private Physician; When: 2 - 3 days; Reason: Recheck today's complaints, Continuance of care, Re-evaluation by your physician. Problem is new. Symptoms have improved. pm1
[2018-06-27] MEDS ORDERED: HYDROCODONE/APAP 5/325 MG TAB ONE (20:03)
[2018-06-27 20:09] VITALS: TEMP 97.7; O2SAT 99
[2018-06-27 20:10] VITALS: BP 159/76
== END 2018-06-27 20:03 | disposition home or self-care (01) ==
LOC: ER 17:49
DX: R10.31 Right lower quadrant pain (principal); E78.00 Pure hypercholesterolemia, unspecified; I13.2 Hypertensive heart and chronic kidney disease with heart failure and with stage 5 chronic kidney disease, or end stage renal disease; N18.6 End stage renal disease; I50.9 Heart failure, unspecified; Z79.82 Long term (current) use of aspirin; Z79.899 Other long term (current) drug therapy; Z99.2 Dependence on renal dialysis
CPT/HCPCS: 74176; 99284